=== PATIENT | male | born 1980 | race Caucasian/White ===

== ENCOUNTER 2017-02-05 12:12 | Emergency (ER) | payer SELFPAY ==
[~2017-02-05] VITALS: Ht 177.8 cm; Wt 90.7 kg
[2017-02-05 12:15] VITALS: BP 124/83
--- NOTE | 2017-02-05 14:45 | NUR ---
PATIENT TO ER BED 5.
--- NOTE | 2017-02-05 14:45 | NUR ---
36/M BIB SELF C/O ABSCESS LEFT BUTTOCK X 3 DAYS. DENIES N/V/D; SKIN IS PINK/WARM/DRY; AAOX4 WITH EVEN AND STEADY GAIT; LUNGS CLEAR BL; HR EVEN AND REGULAR; PT DENIES ANY FEVER, CP, SOB, OR COUGH AT THIS TIME; PATIENT STATES LEFT BUTTOCK PAIN OF 5/10 AT THIS TIME; VSS; PATIENT POSITIONED FOR COMFORT; HOB ELEVATED; BEDRAILS UP X2; BED DOWN. ER MD MADE AWARE OF PT STATUS.
--- NOTE | 2017-02-05 15:56 | NUR ---
Gi moran in [facility] - 02/05/17 at 1701 by [email or web address] PATIENT TO ER BED.
--- NOTE | 2017-02-05 16:06 | NUR ---
Patient being evaluated by physician at bedside.
[2017-02-05] MEDS: LIDOCAINE 1% 500 MG/50 ML VIAL INJ ONE (16:08)
[2017-02-05] MEDS ORDERED: LIDOCAINE 1% ED 50 ML ONE (16:09)
[2017-02-05 16:40] VITALS: BP 124/72
== END 2017-02-05 16:40 | disposition home or self-care (01) ==
LOC: MED 12:12
PROC: 0H98XZZ Drainage of Buttock Skin, External Approach (ICD-10-PCS; principal; 2017-02-05)
DX: L02.31 Cutaneous abscess of buttock (principal); R03.0 Elevated blood-pressure reading, without diagnosis of hypertension
CPT/HCPCS: 10060; 99283; J2001